=== PATIENT | male | born 1980 | race Caucasian/White ===

== ENCOUNTER 2018-07-04 10:37 | Day surgery (SDC) | payer OTHER ==
[2018-07-04] MEDS ORDERED: LR 1,000 ML IV ONE (10:49)
[2018-07-04] MEDS ORDERED: PROPOFOL/EMULSION 500 MG/50 ML BOTTLE IV ONE (11:33)
[2018-07-04] MEDS ORDERED: MIDAZOLAM 2 MG/2 ML VIAL ONE (11:33)
[2018-07-04] MEDS ORDERED: LIDOCAINE 2% 5 ML SDV ONE (11:35)
[2018-07-04] MEDS ORDERED: LIDOCAINE 2% JELLY 6 ML TOPICAL SYR ONE (11:35)
--- NOTE | 2018-07-04 11:37 | PDANEPAE ---
ANE Past Medical History - Cardiovascular History Hx Hypertension: No Hx Arrhythmias: No Hx Chest Pain: No Hx Coronary Artery / Peripheral Vascular Disease: No Hx CHF / Valvular Disease: No Hx Palpitations: No - Pulmonary History Hx COPD: No Hx Asthma/Reactive Airway Disease: No Hx Recent Upper Respiratory Infection: No Hx Oxygen in Use at Home: No Hx Sleep Apnea: No Sleep Apnea Screening Result - Last Documented: Positive - Neurologic History Hx Cerebrovascular Accident: No Hx Seizures: No Hx Dementia: No - Endocrine History Hx Diabetes: No - Renal History Hx Renal Disorders: No - Liver History Hx Hepatic Disorders: No - Neurological & Psychiatric Hx Hx Neurological and Psychiatric Disorders: Yes Neurological / Psychiatric History Comment: anxiety - Cancer History Hx Cancer: No - Congenital Disorder History Hx Congenital Disorders: No - GI History Hx Gastrointestinal Disorders: Yes Gastrointestinal History Comment: intermittent difficulty swallowing, scratchy throat, almost choked 1 week ago - Other Health History Other Health History: none - Chronic Pain History Chronic Pain: No - Surgical History Prior Surgeries: colonscopy, endoscopy ANE Review of Systems Review of Systems: - Exercise capacity METS (RN): 4 METS ANE Patient History - Allergies Allergies/Adverse Reactions: buprenorphine [From Suboxone] Allergy (Verified 06/27/18 12:45) Unknown naloxone [From Suboxone] Allergy (Verified 06/27/18 12:45) Unknown - Home Medications Home Medications: Escitalopram Oxalate 06/27/18 [Last Taken 07/04/18] Pantoprazole Sodium 06/27/18 [Last Taken 07/04/18] Mucinex 07/04/18 [Last Taken 07/04/18] - NPO status NPO Since - Liquids (Date): 07/04/18 NPO Since - Liquids (Time): 08:00 NPO Since - Solids (Date): 07/03/18 NPO Since - Solids (Time): 21:00 - Smoking Hx Smoking Status: Former smoker - Family Anes Hx Family Hx Anesthesia Complications: none ANE Labs/Vital Signs - Vital Signs Blood Pressure: 136/98 Heart Rate: 75 Respiratory Rate: 14 O2 Sat (%): 97 Height: 193.04 cm Weight: 156.489 kg ANE Physical Exam - Airway Neck exam: FROM, spinal fusion Mouth exam: normal dental/mouth exam - Pulmonary Pulmonary: no respiratory distress, no rales or rhonchi, reduced air movement - Cardiovascular Cardiovascular: regular rate and rhythym, no murmur, rub, or gallop - ASA Status ASA Status: III ANE Anesthesia Plan Anesthesia Plan: GA with mask
--- NOTE | 2018-07-04 12:18 | PDGENHP ---
History & Physical Chief Complaint: eoe dysphagia History of Present Illness: hx eoe s/p tx still with dysphagia Pertinent Past, Social, Family History: no tobacco. alcohol 3 times per week. fhx - no eOE Relevant Physical Exam: A+Ox3. CTA. S1S2, rrr. +BS, soft nt Cardiorespiratory Assessment: class 3
--- NOTE | 2018-07-04 12:51 | GIREPORT ---
[facility] Surgical Services - Endoscopy Department Patient Name: Michael Irwin Procedure Date: 07/04/2018 12:21 PM Patient Type: Outpatient Attending / ER Physician: Juve Archibald MD Procedure: Upper GI endoscopy Indications: Dysphagia, For therapy of eosinophilic esophagitis Providers: Juve Archibald MD Medicines: Propofol per Anesthesia = IV general with spontaneous respirations Complications: No immediate complications. Estimated blood loss: Minimal. Description of Procedure: After obtaining informed consent, the endoscope was passed under direct vision. Throughout the procedure, the patient's blood pressure, pulse, and oxygen saturations were monitored continuously. The Endoscope was intro duced through the mouth, and advanced to the third part of duodenum. The uppe r GI endoscopy was accomplished without difficulty. The patient tolerated th e procedure well. Findings: Mucosal changes including ringed esophagus, feline appearance and longitudinal furrows were found in the entire esophagus. A guidewire wa s placed and the scope was withdrawn. Dilation was performed with a Savar y dilator with no resistance at 45 Fr, 48 Fr and 54 Fr. Scope reinserted and no visible dilation ws noted. A guidewire was placed and the scope was withdrawn. Dilation was performed with a Savary dilator with mild resis tance at 57 Fr and 60 Fr. The dilation site was examined following endoscope reinsertion and showed moderate improvement in luminal narrowing. Estim ated blood loss was minimal. Biopsies were obtained from the proximal and di stal esophagus with cold forceps for histology of suspected eosinophilic esophagitis. Estimated blood loss was minimal. The entire examined stomach was normal. The examined duodenum was normal. The exam was otherwise without abnormality. Estimated Blood Loss: Estimated blood loss was minimal. Post Op Diagnosis: - Esophageal mucosal changes secondary to eosinophilic esophagitis. Dil ated. Biopsied. - Normal stomach. - Normal examined duodenum. - The examination was otherwise normal. Recommendation: - Continue present medications. - Await pathology results. - My office will call with the pathology result with 5-7 days. If you h ave not heard from my office by 05-16, do not assume the pathology is mike l, please call [phone] to get the pathology results. - Cut food into small pieces and chew well. - Patient has a contact number available for emergencies. The signs and symptoms of potential delayed complications were discussed with the pat ient. Return to normal activities tomorrow. Written discharge instructions we re provided to the patient. - Discharge patient to home (ambulatory). - Return to primary care physician as previously scheduled. - Return to GI clinic in 3 weeks. - Discharge patient to home (ambulatory). - Thank you for allowing me to help in your patient's care. Do not hesi reyes to call with any questions. Attending Participation: I personally performed the entire procedure. Dragan Silva M.D Juve Archibald MD 07/04/2018 12:51:15 PM This report has been signed electronicallyMatthew MD Dragan Number of Addenda: 0 Note Initiated On: 07/04/2018 12:21 PM Total Procedure Duration Time 0 hours 15 minutes 38 seconds [email or web address]
[2018-07-04] MEDS ORDERED: ALBUTEROL 3 ML DEYVIAL ONE (12:54)
[2018-07-04] MEDS ORDERED: DEXAMETHASONE 4 MG/ML VIAL IVP PRN (13:01)
[2018-07-04] MEDS ORDERED: ALBUTEROL 3 ML DEYVIAL IH PRN (13:01)
[2018-07-04] MEDS ORDERED: NALOXONE HCL 0.4 MG/ML INJ IVP PRN (13:01)
[2018-07-04] MEDS ORDERED: ONDANSETRON 4 MG/2 ML VIAL IVP PRN (13:01)
[2018-07-04] MEDS ORDERED: LR 500 ML IV PRN (13:01)
--- NOTE | 2018-07-04 13:04 | POSTANESTH ---
Post Anesthetic Evaluation Cardiovascular Status: Normal, Stable, Similar to Pre-Op Cond Respiratory Status: Normal, Stable, Other, See Comment Level of Consciousness/Mental Status: Can Participate in Eval Pain Control: Adequate, Prn Tx Ordered Nausea/Vomiting Control: Adequate, Prn Tx Ordered Complications Possibly Related to Anesthesia: None Noted (ALBUTEROL TREATMENT FOR MILD BRONCHOSPASM)
[2018-07-04 14:02] VITALS: BP 118/82
== END 2018-07-04 14:00 | disposition home or self-care (01) ==
LOC: FSGY 10:37
PROVIDERS: ATTEND Internal Medicine Gastroenterology
DX: K20.0 Eosinophilic esophagitis (principal); R13.19 Other dysphagia
CPT/HCPCS: J2250; J2704; J7613